=== PATIENT | male | born 1990 | race Caucasian/White ===

== ENCOUNTER 2020-04-17 20:19 | Emergency (ER) | payer SELFPAY ==
[~2020-04-17] VITALS: Ht 167.6 cm; Wt 83.5 kg
[2020-04-17 20:22] VITALS: BP 125/96
[2020-04-17] MEDS ORDERED: ZOLP5TAB1 PO (21:07)
[2020-04-17 21:15] VITALS: BP 125/96
== END 2020-04-17 21:15 | disposition home or self-care (01) ==
LOC: MED 20:19
DX: F41.9 Anxiety disorder, unspecified (principal); F32.9 Major depressive disorder, single episode, unspecified; G47.00 Insomnia, unspecified; J45.909 Unspecified asthma, uncomplicated; Z79.899 Other long term (current) drug therapy
CPT/HCPCS: 82948; 99283